=== PATIENT | male | born 1995 | race Caucasian/White ===

== ENCOUNTER 2017-06-07 10:51 | Emergency (ER) | payer OTHER ==
[2017-06-07] MEDS ORDERED: diPHENhydraMINE IV* 50 MG/ML 1 ml VIAL (BENADRYL) IV ONE (12:16)
[2017-06-07] MEDS ORDERED: PROCHLORPERAZINE INJ 5 MG/ML 2 ML VIAL IV ONE (12:16)
[2017-06-07] MEDS ORDERED: NS 0.9% 1000 ML* 1,000 ML IV ONE (12:17)
[2017-06-07 12:51] LABS: ABS Basophils 0.1 10^3/ul (0-0.2); ABS Eosinophils 0.3 10^3/ul (0-0.6); ABS Lymphocytes 1.7 10^3/ul (1.0-4.8); ABS Monocytes 0.5 10^3/ul (0-0.8); ABS Neutrophils 9.5 10^3/ul (1.5-7.7); ABS Nucleated RBC 0 10^3/ul; Eosinophil % 2.5 % (0-6); Hematocrit 44 % (42-52); Hemoglobin 14.5 g/dl (14.0-18.0); Lymphocyte % 14.1 % (25-47); Mean Corpuscular HGB Conc 33 g/dl (31-36); Mean Corpuscular Hemoglobin 26 pg (27-31); Mean Corpuscular Volume 78 fL (80-94); Mean Platelet Volume 6 um3 (7.4-10.4); Nucleated Red Blood Cells % 0; Platelet Count 388 10^3/ul (150-450); Red Blood Count 5.62 10^6/ul (4.0-5.4); Red Cell Distribution Width 15 % (10.5-15)
[2017-06-07 13:08] LABS: EGFR Non-African American 107.3 (>60)
--- NOTE | 2017-06-07 13:26 | RAD ---
INDICATION: Headache. COMPARISON: There are no prior studies available for comparison. TECHNIQUE: Contiguous axial sections of the brain were obtained from the skull base to the vertex without contrast. FINDINGS: The ventricles, cisterns and sulci are within normal limits. No significant focal abnormality or mass effect is seen. There is no evidence for hemorrhage. There is mild mucosal thickening within the ethmoid air cells. The visualized portion of the paranasal sinuses and mastoid air cells otherwise appear clear. IMPRESSION: 1. NO EVIDENCE FOR ACUTE INTRACRANIAL ABNORMALITY. 2. MILD MUCOSAL THICKENING WITHIN THE ETHMOID AIR CELLS.
--- NOTE | 2017-06-07 13:46 | ED ---
Headache - HPI Summary HPI Summary: 21 male presents with headache for the past couple hours. He states that it is located in the frontal part of his head. He states he has been having a headache over the past week. He admits to sinus congestion. He denies any fevers. He has a history of chronic Lyme is not currently on antibiotic. He denies any sore throat. He denies any cough. He has been using a decongestant , ibuprofen with some relief. He states it does not were his normal headaches are. He is a family history of headaches. He denies any family history of aneurysms or anything. He states as time goes on the headache gets better. He states headache was in times worse and now is a 4 out of 10. He denies any photophobia or phonophobia. He denies any nausea, vomiting. He denies any head injury. He denies any dizziness. - History Of Current Complaint Chief Complaint: EDHeadache Stated Complaint: HEADACHE Time Seen by Provider: 06/07/17 12:02 - Allergies/Home Medications Allergies/Adverse Reactions: Allergies Allergy/AdvReac Type Severity Reaction Status Date / Time No Known Allergies Allergy Verified 01/28/13 12:01 PMH/Surg Hx/FS Hx/Imm Hx Endocrine/Hematology History: Denies: Hx Sickle Cell Disease Cardiovascular History: Denies: Other Cardiovascular Problems/Disorders GI History: Denies: Other GI Disorders History: Denies: Other Problems/Disorders Musculoskeletal History: Denies: Other Musculoskeletal History Sensory History: Denies: Hx Contacts or Glasses, Hx Hearing Aid Opthamlomology History: Denies: Hx Contacts or Glasses Neurological History: Denies: Other Neuro Impairments/Disorders - Surgical History Surgery Procedure, Year, and Place: TUBE AT 16 MONTHS OLD - [place] Hx Anesthesia Reactions: No - BREAKS THROUGH MEDICINE QUICKLY Infectious Disease History: No Infectious Disease History: Denies: Traveled Outside the [place] in Last 30 Days - Family History Known Family History: Positive: Other - migraines - Social History Alcohol Use: None Substance Use Type: Reports: None Smoking Status (MU): Never Smoked Tobacco Review of Systems Negative: Fever Positive: Nasal Discharge Negative: Chest Pain Negative: Shortness Of Breath Positive: Headache All Other Systems Reviewed And Are Negative: Yes Physical Exam Triage Information Reviewed: Yes Vital Signs On Initial Exam: Initial Vitals Temp Pulse Resp BP Pulse Ox 97.1 F 87 18 135/82 96 06/07/17 10:52 06/07/17 10:52 06/07/17 10:52 06/07/17 10:52 06/07/17 10:52 Vital Signs Reviewed: Yes Appearance: Positive: Well-Appearing Skin: Positive: Warm, Dry Head/Face: Positive: Normal Head/Face Inspection Eyes: Positive: Normal, EOMI, PAVAN, Conjunctiva Clear ENT: Positive: Pharynx normal, Nasal congestion, TMs normal, Sinus tenderness Neck: Positive: Supple, Nontender, No Lymphadenopathy Respiratory/Lung Sounds: Positive: Clear to Auscultation, Breath Sounds Present Cardiovascular: Positive: Normal, RRR Abdomen Description: Positive: Nontender, Soft Bowel Sounds: Positive: Present Musculoskeletal: Positive: Normal Neurological: Positive: Normal Psychiatric: Positive: Normal Diagnostics - Vital Signs Vital Signs Temp Pulse Resp BP Pulse Ox 06/07/17 10:52 97.1 F 87 18 135/82 96 - Laboratory Lab Results: Lab Results 06/07/17 06/07/17 Range/Units 12:40 12:40 WBC 12.0 H (3.5-10.8) 10^3/ul RBC 5.62 H (4.0-5.4) 10^6/ul Hgb 14.5 (14.0-18.0) g/dl Hct 44 (42-52) % MCV 78 L (80-94) fL MCH 26 L (27-31) pg MCHC 33 (31-36) g/dl RDW 15 (10.5-15) % Plt Count 388 (150-450) 10^3/ul MPV 6 L (7.4-10.4) um3 Neut % (Auto) 78.8 (38-83) % Lymph % (Auto) 14.1 L (25-47) % [place] % (Auto) 4.1 (0-7) % Eos % (Auto) 2.5 (0-6) % Baso % (Auto) 0.5 (0-2) % Absolute Neuts (auto) 9.5 H (1.5-7.7) 10^3/ul Absolute Lymphs (auto) 1.7 (1.0-4.8) 10^3/ul Absolute Monos (auto) 0.5 (0-0.8) 10^3/ul Absolute Eos (auto) 0.3 (0-0.6) 10^3/ul Absolute Basos (auto) 0.1 (0-0.2) 10^3/ul Absolute Nucleated RBC 0 10^3/ul Nucleated RBC % 0 Sodium 136 (133-145) mmol/L Potassium 4.0 (3.5-5.0) mmol/L Chloride 101 (101-111) mmol/L Carbon Dioxide 27 (22-32) mmol/L Anion Gap 8 (2-11) mmol/L BUN 10 (6-24) mg/dL Creatinine 0.91 (0.67-1.17) mg/dL Est GFR ( Amer) 138.0 (>60) Est GFR (Non-Af Amer) 107.3 (>60) BUN/Creatinine Ratio 11.0 (8-20) Glucose 139 H (70-100) mg/dL Calcium 9.9 (8.6-10.3) mg/dL Total Bilirubin 0.50 (0.2-1.0) mg/dL AST 16 (13-39) U/L ALT 15 (7-52) U/L Alkaline Phosphatase 102 (34-104) U/L C-React Prot High Sens 7.55 mg/L Total Protein 8.4 (6.4-8.9) g/dL Albumin 4.2 (3.2-5.2) g/dL Globulin 4.2 H (2-4) g/dL Albumin/Globulin Ratio 1.0 (1-3) Result Diagrams: 06/07/17 12:40 06/07/17 12:40 Lab Statement: Any lab studies that have been ordered have been reviewed, and results considered in the medical decision making process. - CT brain CT Interpretation: Positive (See Comments) - IMPRESSION: 1. NO EVIDENCE FOR ACUTE INTRACRANIAL ABNORMALITY. 2. MILD MUCOSAL THICKENING WITHIN THE ETHMOID AIR CELLS. CT Interpretation Completed By: Radiologist Headache Course/Dx - Course Course Of Treatment: 21 male presents with headache for the past couple hours. He states that it is located in the frontal part of his head. He states he has been having a headache over the past week. He admits to sinus congestion. He denies any fevers. He has a history of chronic Lyme is not currently on antibiotic. He denies any sore throat. He denies any cough. He has been using a decongestant, ibuprofen with some relief. He states it does not were his normal headaches are. He is a family history of headaches. He denies any family history of aneurysms or anything. He states as time goes on the headache gets better. He states headache was in times worse and now is a 4 out of 10. He denies any photophobia or phonophobia. He denies any nausea, vomiting. He denies any head injury. He denies any dizziness. On exam normal neuro exam. Sinus tenderness on the frontal head. Labs white blood cell count 12. Once again, radiation and patient's headache has resolved. CT shows ethmoid sinus mucosal thickening. We'll treat as a sinusitis as make sense with the symptoms. We'll treat with Augmentin. Patient understands and agrees to plan. - Diagnoses Differential Diagnosis/HQI/PQRI: Migraine, Sinus Headache, Viral Syndrome Provider Diagnoses: Headache, Sinusitis Discharge - Discharge Plan Condition: Good Disposition: HOME Prescriptions: Amoxicillin/Clavulanate TAB* [Augmentin TAB 875*] 875 mg PO BID #19 tab Patient Education Materials: Sinusitis (ED) Referrals: Harsha Moralez MD [Primary Care Provider] - Additional Instructions: Take antibiotic twice a day for 10 days Use saline spray in nose as much as needed Use humidifier in room or can use warm water in bowls Use OTC decongestions Take tyenlol and ibuprofen for pain Follow up with primary care physician within 5 days Return to ED with any new or worsening symptoms
[2017-06-07] MEDS ORDERED: Amoxicillin/Clavulanate TAB* 875 MG PO ONE (13:52)
[2017-06-07 15:08] VITALS: BP 127/65
== END 2017-06-07 14:22 | disposition home or self-care (01) ==
LOC: ED 10:51
DX: J32.9 Chronic sinusitis, unspecified (principal); R51 Headache
CPT/HCPCS: 36415; 70450; 80053; 85025; 86141; 96360; 96374; 96375; 99282; J0780; J1200

== ENCOUNTER 2017-09-16 18:06 | Emergency (ER) | payer OTHER ==
--- NOTE | 2017-09-16 18:46 | UC ---
Lower Extremity/Ankle HPI - HPI Summary HPI Summary: 21 y/o male presents to the urgent care c/o 5th RT toe pain s/p injury w/ a chair leg around 1500pm today. Pt reports he smashed his RT pinky, pain is 6/ 10. He took 2 tabs PO ibuprofen and applied ice to alleviate symptoms. Pt has surgery to RT great toe in the past. Pt denies numbness and tingling sensation over the Rt foot, fever, calf pain, SOB, flory pain, abdominal pain, N/V/D. - History of Current Complaint Chief Complaint: UCLowerExtremity Stated Complaint: TOE INJURY Time Seen by Provider: 09/16/17 18:45 Hx Obtained From: Patient Onset/Duration: Sudden Onset, Lasting Hours - 4 hrs ago, Still Present Severity Initially: Moderate Severity Currently: Moderate Pain Intensity: 6 Pain Scale Used: 0-10 Numeric Aggravating Factor(s): Ambulation Alleviating Factor(s): Rest, Elevation, OTC Meds Able to Bear Weight: Yes - Risk Factors Gout Risk Factors: Negative DVT Risk Factors: Negative Septic Arthritis Risk Factor: Negative - Allergies/Home Medications Allergies/Adverse Reactions: Allergies Allergy/AdvReac Type Severity Reaction Status Date / Time No Known Allergies Allergy Verified 09/16/17 18:36 Home Medications: Home Medications Fexofenadine/Pseudoephedrine [Pooja-D 24 Hour Tablet] 1 each PO DAILY PRN [History Confirmed 09/16/17] raNITIdine HCl [Ranitidine HCl] 150 mg PO DAILY PRN 09/16/17 [History Confirmed 09/16/17] PMH/Surg Hx/FS Hx/Imm Hx Previously Healthy: Yes Other Respiratory History: Seasonal allergies GI/ History: Gastroesophageal Reflux - Surgical History Surgical History: Yes Surgery Procedure, Year, and Place: TUBE AT 16 MONTHS OLD [facility]. several on toes - Family History Known Family History: Positive: Cardiac Disease, Hypertension, Diabetes, Other - migraines - Social History Occupation: Student Lives: With Family Alcohol Use: None Substance Use Type: None Smoking Status (MU): Never Smoked Tobacco - Immunization History Vaccination Up to Date: Yes Review of Systems Constitutional: Negative Skin: Negative Eyes: Negative ENT: Negative Respiratory: Negative Cardiovascular: Negative Gastrointestinal: Negative Genitourinary: Negative Motor: Negative Neurovascular: Negative Musculoskeletal: Decreased ROM - left 5th toe, Other: - left 5th toe and left foot pain s/p injury Neurological: Negative Psychological: Negative Is Patient Immunocompromised?: No All Other Systems Reviewed And Are Negative: Yes Physical Exam - Summary Physical Exam Summary: Vital Signs Reviewed: Yes General : well developed, well nourished male adolescent w/o any apparent distress Eyes: Positive: Conjunctiva Clear - PERRLA, EOMI ENT: Positive: Normal ENT inspection, Hearing grossly normal, Pharynx normal, TMs normal Neck: Positive: Supple, Nontender, No Lymphadenopathy Respiratory: Positive: Chest non-tender, Lungs clear, Normal breath sounds, No respiratory distress Cardiovascular: Positive: RRR, No Murmur, Pulses Normal Abdomen Description: Positive: Nontender, No Organomegaly, Soft. Negative: CVA Tenderness (R), CVA Tenderness (L) Bowel Sounds: Positive: Present Musculoskeletal: Positive: Strength Intact, ROM Intact, No Edema, RT Foot/Toes : Pt is able to bear weight but ambulate with mild limping. RT foot :No surface trauma, ecchymosis, erythema, lesions, ulcers or break in skin integrity. The R foot is without obvious asymmetry or deformity when compared to the L foot. No bony step-off, Point tenderness to palpation over the Rt 5th toe w/ mild swelling , and Point tenderness over the dorsal side of mid foot and base of the 4th and 5th metatarsal and sole at the same level, no tenderness of hindfoot , Decrease plantar/dorsiflexion, inversion/eversion due to pain. Distal motor and neurovascular status are intact. Neurological Exam: Normal Psychological Exam: Normal Skin Exam: Normal Triage Information Reviewed: Yes Vital Signs: Initial Vital Signs Temp 98.9 F 09/16/17 18:29 Pulse 91 09/16/17 18:29 Resp 16 09/16/17 18:29 BP 124/73 09/16/17 18:29 Pulse Ox 99 09/16/17 18:29 Lower Extremity Course/Dx - Course Course Of Treatment: 21 y/o male presents to the urgent care c/o 5th RT toe pain s/p injury w/ a chair leg around 1500pm today. Pt reports he smashed his RT pinky, pain is 6/10. He took 2 tabs PO ibuprofen and applied ice to alleviate symptoms. Pt has surgery to RT great toe in the past. Pt denies numbness and tingling sensation over the Rt foot, fever, calf pain, SOB, flory pain, abdominal pain, N/V/D.Hx obtained. - Differential Dx/Diagnosis Differential Diagnosis/HQI/PQRI: Contusion, Fracture (Closed), Sprain, Strain, Tendonitis Provider Diagnoses: 1- left RT 5th toe and foot pain s/p injury. 2- RT foot sprain Discharge - Discharge Plan Condition: Stable Disposition: HOME Prescriptions: Naproxen TAB* [Naprosyn 250 mg TAB*] 250 mg PO Q8H PRN #30 tab PRN Reason: Pain Patient Education Materials: Foot Sprain (ED) Forms: *Work Release Referrals: Harsha Moralez MD [Primary Care Provider] - 1 Week Anderson Blood MD [Medical Doctor] - 1 Week Additional Instructions: 1-Please take medications as directed to alleviate pain and swelling. 2-Please apply ice, keep your foot immobilized with the Eulalio bandage and post-op shoes. Use the crutches you have at home to avoid weight bearing until symptoms resolve. 3- Please f/u with your PCP or Orthopedic Dr Blood in 1 week if not improvement of symptoms for further evaluation and treatment. - Billing Disposition and Condition Condition: STABLE Disposition: Home
[2017-09-16] MEDS ORDERED: Acetaminophen TAB* 325 MG PO ONE (19:05)
--- NOTE | 2017-09-16 19:33 | RAD ---
INDICATION: Right foot injury COMPARISON: None TECHNIQUE: AP, lateral, and oblique views were obtained. FINDINGS: There are no acute bony findings. The joint spaces are preserved. There are mild hammertoe deformities.. IMPRESSION: NO ACUTE BONY FINDINGS.
[2017-09-16 20:51] VITALS: BP 120/68
== END 2017-09-16 20:49 | disposition home or self-care (01) ==
LOC: UCEAST 18:06
DX: S93.504A Unspecified sprain of right lesser toe(s), initial encounter (principal); M79.671 Pain in right foot; J30.2 Other seasonal allergic rhinitis; K21.9 Gastro-esophageal reflux disease without esophagitis; M79.675 Pain in left toe(s); W22.03XA Walked into furniture, initial encounter; Y92.9 Unspecified place or not applicable
CPT/HCPCS: 99213; A9270-GY; G0463

== ENCOUNTER 2018-10-25 12:37 | Emergency (ER) | payer OTHER ==
[2018-10-25 14:09] VITALS: BP 126/71
--- NOTE | 2018-10-25 14:45 | UC ---
Ear Complaint HPI - HPI Summary HPI Summary: 22 year old male with h/o eustachian tubes, frequent abx use, last 05/2018, amox , cleared well. no H/O resisted bacteria No headache, no fever, ? chills x 1. no sinus/ throat symptoms, no SOB, cough. no GI symptoms. - History of Current Complaint Chief Complaint: UCGeneralIllness Stated Complaint: ear ACHE Time Seen by Provider: 10/25/18 14:31 Hx Obtained From: Patient Onset/Duration: Sudden Onset Severity Initially: Moderate Severity Currently: Moderate Pain Intensity: 5 Pain Scale Used: 0-10 Numeric Associated Signs/Symptoms: Negative: Discharge, Hearing Loss, Foreign Body Sensation, Trauma to Ear, Swelling @, URI Symptoms - Allergies/Home Medications Allergies/Adverse Reactions: Allergies Allergy/AdvReac Type Severity Reaction Status Date / Time No Known Allergies Allergy Verified 10/25/18 14:08 Home Medications: Home Medications Activated Charcoal 1 gm MC 10/25/18 [History] Atovaquone* [Mepron*] 750 mg PO BID 10/25/18 [History Confirmed 10/25/18] B 12 10/25/18 [History] Cefdinir cap* [Cefdinir 300 MG cap (NF)] 300 mg PO BID 10/25/18 [History Confirmed 10/25/18] Cholecalciferol TAB* [Vitamin D TAB*] 1,000 unit PO DAILY 10/25/18 [History Confirmed 10/25/18] Enyala Drops 10/25/18 [History] Fluconazole [Diflucan 100 mg tab] 100 mg PO BID 10/25/18 [History Confirmed 05/14] Gabapentin 300 mg PO BID 10/25/18 [History Confirmed 10/25/18] L.acidoph,Paracasei, B.lactis [Probiotic] 1 each PO DAILY 10/25/18 [History Confirmed 10/25/18] Magnesium Malate 1 gm MC 10/25/18 [History] Metoclopramide HCl 10 mg PO BID 10/25/18 [History Confirmed 10/25/18] Septra 1 cap PO BID 10/25/18 [History] hydrOXYzine HCL TAB* [Atarax 25 MG TAB*] 25 mg PO QID PRN 10/25/18 [History Confirmed 10/25/18] metroNIDAZOLE * [Flagyl] 500 mg PO BID 10/25/18 [History Confirmed 10/25/18] PMH/Surg Hx/FS Hx/Imm Hx Previously Healthy: Yes Psychological History: Other - Surgical History Surgical History: Yes Surgery Procedure, Year, and Place: TUBE AT 14 MONTHS OLD - [place]. several on toes - Family History Known Family History: Positive: Cardiac Disease, Hypertension, Diabetes, Other - migraines, Non-Contributory - Social History Alcohol Use: None Substance Use Type: None Smoking Status (MU): Never Smoked Tobacco - Immunization History Vaccination Up to Date: Yes Physical Exam Vital Signs: Initial Vital Signs Temp 98 F 10/25/18 14:06 Pulse 78 10/25/18 14:06 Resp 17 10/25/18 14:06 BP 126/71 10/25/18 14:06 Pulse Ox 99 10/25/18 14:06 Discharge - Sign-Out/Discharge Documenting (check all that apply): Patient Departure All imaging exams completed and their final reports reviewed: No Studies - Discharge Plan Condition: Good Disposition: HOME Prescriptions: Amoxicillin PO (*) [Amoxicillin 875 MG (*)] 875 mg PO BID #14 tab Patient Education Materials: Ear Infection (ED) Referrals: Harsha Moralez MD [Primary Care Provider] - Ruben Grover MD [Medical Doctor] - 1 Week (follow up in 2-3 days if no improvement ) Additional Instructions: - Antibiotics as prescribed. - Follow up with ENT within 2-3 days if no improvement - Tylenol/ motrin as needed for pain - Increase fluid intake - Billing Disposition and Condition Condition: GOOD Disposition: Home
== END 2018-10-25 15:00 | disposition home or self-care (01) ==
LOC: UCEAST 12:37
DX: H92.09 Otalgia, unspecified ear (principal)
CPT/HCPCS: 99212; G0463